=== PATIENT | female | born 1935 | race Caucasian/White ===

== ENCOUNTER → 2016-10-06 | Outpatient (CLI) | payer OTHER ==
[~2016-10-06] MED LIST: GADOBUTROL 10 ML VIAL IVP ONE
[2016-10-06 12:20] LABS: CREATININE 0.7 mg/dL (0.6-1.0); GLOMERULAR FILTRATION RATE > 60
== END ==
LOC: FIMAGING 11:27
PROVIDERS: ATTEND Internal Medicine Gastroenterology
DX: K86.2 Cyst of pancreas (principal); Z90.49 Acquired absence of other specified parts of digestive tract; R93.2 Abnormal findings on diagnostic imaging of liver and biliary tract
CPT/HCPCS: 74183; A9585

== ENCOUNTER → 2016-10-25 | Day surgery (SDC) | payer OTHER ==
[~2016-10-25] MED LIST changes: +DEXAMETHASONE 4 MG/ML VIAL ONE; +DICYCLOMINE 20 MG TAB PO ONE; -GADOBUTROL 10 ML VIAL IVP ONE; +GLUCAGON,HUMAN RECOMBINANT 1 MG VIAL ONE; +INDOMETHACIN 50 MG SUPP PR ONE; +IOTHALAMATE MEG (CONRAY) 50 ML VIAL IV ONE; +LIDOCAINE 1% 5 ML SDV ID PRN; +LIDOCAINE 2% 5 ML SDV ONE; +LR 1,000 ML IV ONE; +ONDANSETRON 4 MG/2 ML VIAL ONE; +PROPOFOL 200 MG/20 ML VIAL ONE; +ROCURONIUM 50 MG/5 ML VIAL ONE; +SUGAMMADEX SODIUM 200 MG/2 ML VIAL IVP ONE; +fentaNYL 100 MCG/2 ML INJ ONE
--- NOTE | 2016-10-25 12:31 | GPN ---
[f rep st] PROCEDURE NOTE PREPROCEDURE DIAGNOSIS: Choledocholithiasis. POSTPROCEDURE DIAGNOSIS: Choledocholithiasis, status post stone removal. PROCEDURE: Endoscopic retrograde cholangiopancreatography with stone removal. MEDICATIONS: General anesthesia. Indomethacin 100 mg given rectally during the procedure. INDICATION: The patient is an 81-year-old female with a history of choledocholithiasis, with an ERCP last year with stone removal. She had a followup MRCP for pancreatic cyst and was found incidentally to have choledocholithiasis with the largest stone measuring 3 mm. She has been having some intermittent epigastric discomfort and mild chest discomfort, which may be secondary to these stones. She has consented for ERCP for stone removal. The risks and benefits of the procedure were discussed with the patient. Consent obtained. Risks include, but are not limited to, bleeding, perforation, infection, risks related to pancreatitis. DESCRIPTION OF PROCEDURE: The duodenoscope inserted into the esophagus, into stomach, and second portion of the duodenum. The ampulla was visualized. The hydratome catheter was used to engage the ampulla, and the preloaded Jagwire advanced into the intrahepatic biliary tree to secure position. The pancreatic duct was never injected or cannulated. Next, a balloon was inserted into the bile duct over the wire. The 9-12 mm stone extraction balloon was inflated to 9 mm and then to 12 mm. Multiple balloon sweeps yielded stone debris and sludge. A 3 mm intact stone was also removed. A final occlusion cholangiogram was negative for retained stones. IMPRESSION: Choledocholithiasis, status post stone removal. A final cholangiogram was negative for retained stones. RECOMMENDATIONS: 1. Advance diet as tolerated. 2. Discharge to home with escort. 3. Follow up in our clinic as previously scheduled for surveillance of her pancreatic cyst. Thank you for allowing me to participate in the care of your patient. Please do not hesitate to call with questions. /[id number]/MODL MTDD
== END | disposition home or self-care (01) ==
LOC: FSGY 09:24
PROVIDERS: ATTEND Internal Medicine Gastroenterology
PROC: 0F798ZZ Dilation of Common Bile Duct, Via Natural or Artificial Opening Endoscopic (ICD-10-PCS; principal; 2016-10-25 11:00)
DX: K80.50 Calculus of bile duct without cholangitis or cholecystitis without obstruction (principal)
CPT/HCPCS: J1100; J1610; J2405; J2704; J3010; Q9961

== ENCOUNTER → 2016-11-14 | Outpatient (CLI) | payer OTHER | LOC: BHFA 10:15 | PROVIDERS: ATTEND Internal Medicine Cardiovascular Disease | DX: I49.3 Ventricular premature depolarization (principal); I35.1 Nonrheumatic aortic (valve) insufficiency; I10 Essential (primary) hypertension; E78.5 Hyperlipidemia, unspecified ==

== ENCOUNTER → 2017-11-16 | Outpatient (CLI) | payer OTHER | LOC: BHFA 10:45 | PROVIDERS: ATTEND Internal Medicine Cardiovascular Disease | DX: I49.3 Ventricular premature depolarization (principal); R01.1 Cardiac murmur, unspecified ==

== ENCOUNTER 2018-11-01 10:02 | Inpatient (IN) | payer OTHER ==
--- NOTE | 2018-11-01 10:30 | CPEKG ---
Test Reason : OPEN Blood Pressure : / mmHG Vent. Rate : 067 BPM Atrial Rate : 068 BPM P-R Int : 205 ms QRS Dur : 096 ms QT Int : 394 ms P-R-T Axes : 083 051 087 degrees QTc Int : 416 ms Sinus rhythm Borderline abnrm T, anterolateral leads Confirmed by Eliceo Russell ([id number] on 11/01/2018 10:29:09 AM Referred By: PHYSICIAN ED Confirmed By:Eliceo Russell
--- NOTE | 2018-11-01 10:43 | EDPHY ---
H & P Stated Complaint: cp/ bile duct pain Time Seen by Provider: 11/01/18 10:29 HPI/ROS: CHIEF COMPLAINT: Epigastric pain HISTORY OF PRESENT ILLNESS: The patient is an 83-year-old female has a history of cholecystectomy the and pancreatic stones. She states that she has had 2 pancreatic duct stones removed over the last several years. She states that this morning she developed epigastric pain similar to previous stone episodes. She called her son who brought her to the ER however her symptoms have resolved by the time she arrived. She denies having any cardiac history. She has follow -up with gastrology Dr. Francois next week. She did feel nauseous but did not vomit. No diarrhea. No fever. No shortness of breath. Severity: Moderate Modifying factors: Worsened after eating, now resolved REVIEW OF SYSTEMS: Constitutional: denies: chills, fever, recent illness, recent injury EENTM: denies: blurred vision, double vision, nose congestion Respiratory: denies: cough, shortness of breath Cardiac: denies: chest pain, irregular heart rate, lightheadedness, palpitations Gastrointestinal/Abdominal: See HPI Genitourinary: denies: dysuria, frequency, hematuria, pain Musculoskeletal: denies: joint pain, muscle pain Skin: denies: lesions, rash, jaundice, bruising Neurological: denies: headache, numbness, paresthesia, tingling, dizziness, weakness Hematologic/Lymphatic: denies: blood clots, easy bleeding, easy bruising Immunologic/allergic: denies: HIV/AIDS, transplant 10 systems reviewed and negative except as noted EXAM: GENERAL: Well-appearing, well-nourished and in no acute distress. HEAD: Atraumatic, normocephalic. EYES: Pupils equal round and reactive to light, extraocular movements intact, sclera anicteric, conjunctiva are normal. ENT: TMs normal, nares patent, oropharynx clear without exudates. Moist mucous membranes. NECK: Normal range of motion, supple without lymphadenopathy or JVD. LUNGS: Breath sounds clear to auscultation bilaterally and equal. No wheezes rales or rhonchi. HEART: Regular rate and rhythm without murmurs, rubs or gallops. ABDOMEN: Soft, nontender, normoactive bowel sounds. No guarding, no rebound. No masses appreciated. BACK: No CVA tenderness, no spinal tenderness, step-offs or deformities EXTREMITIES: Normal range of motion, no pitting or edema. No clubbing or cyanosis. NEUROLOGICAL: Cranial nerves II through XII grossly intact. Normal speech, normal gait. 5/5 strength, normal movement in all extremities, normal sensation , normal reflexes PSYCH: Normal mood, normal affect. SKIN: Warm, dry, normal turgor, no visible rashes or lesions. Source: Patient Exam Limitations: No limitations - Personal History Current Tetanus Diphtheria and Acellular Pertussis (TDAP): Yes - Medical/Surgical History Hx Asthma: No Hx Chronic Respiratory Disease: No Hx Diabetes: No Hx Cardiac Disease: Yes Hx Renal Disease: No Hx Cirrhosis: No Hx Alcoholism: No Hx HIV/AIDS: No Hx Splenectomy or Spleen Trauma: No Other PMH: Pancreatic stones, cholecystectomy, macular degeneration, corneal erosion, high cholesterol, diverticulitis, diverticulosis, HTN, GERD, urge incontinence, right eye retinal tear, hysterectomy, Csection x 1, bladder/ rectal repair, cardiac cath, bladdersuspension, rectocele repair, right knee surgery, bilateral cataract removals - Family History Significant Family History: No pertinent family hx - Social History Smoking Status: Never smoked Alcohol Use: Sober Constitutional: Initial Vital Signs Temperature (C) 36.7 C 11/01/18 10:14 Heart Rate 71 11/01/18 10:14 Respiratory Rate 16 11/01/18 10:14 Blood Pressure 177/87 H 11/01/18 10:14 O2 Sat (%) 98 11/01/18 10:14 O2 Delivery Mode Room Air Allergies/Adverse Reactions: Gixrcus-Bsj-Cit Reductase Inhibitor Allergy (Severe, Verified 12/19/11 10:10) Other-Enter Comments diazepam [From Valium] Allergy (Intermediate, Verified 12/19/11 10:10) Other-Enter Comments hydrocodone bitartrate [From Vicodin] Allergy (Intermediate, Verified 12/19/11 10:10) Other-Enter Comments adhesive [Adhesive] Allergy (Mild, Verified 12/19/11 10:10) Rash dexlansoprazole [From Dexilant] Allergy (Unknown, Verified 12/19/11 10:10) nitrofurantoin [From Furadantin] Allergy (Unknown, Verified 12/19/11 10:10) sulfamethoxazole [From Bactrim] Allergy (Unknown, Verified 12/19/11 10:10) trimethoprim [From Bactrim] Allergy (Unknown, Verified 12/19/11 10:10) colesevelam HCl [From WelChol] Allergy (Verified 05/05/15 16:30) ezetimibe [From Zetia] Allergy (Verified 05/05/15 16:30) gabapentin Allergy (Verified 10/21/16 15:10) lisinopril Allergy (Verified 05/05/15 16:30) nebivolol HCl [From Bystolic] Allergy (Verified 05/05/15 16:30) Home Medications: Medication Instructions Recorded Aspirin [Aspirin 81mg (*)] 81 mg PO DAILY 12/19/11 Polyethylene Glycol 3350 [Miralax 17 gm PO DAILY PRN 12/19/11 17 gm (*)] Herbals/Supplements -Info Only 1 ea PO DAILY 09/15/15 C/E/Zn/Cu/OM3/DHA/EPA/LUT/ZEAX 1 each PO BID 10/21/16 [Preservision Areds 2 Softgel] Cholecalciferol Vit D3 [Vitamin D3 1,000 units PO DAILY 10/21/16 (*)] Metoprolol Succinate Xr [Toprol Xl 12.5 mg PO HS 10/21/16 25 mg (*)] Propylene Glycol/Peg 400/Pf 1 each OP Q6HRS 10/21/16 [Systane 0.3-0.4% Eye Drops] Vitamin B Complex [Vitamin B 1 each PO DAILY 10/21/16 Complex (OTC)] Calcium Carbonate [Tums 500MG (*)] 500 mg PO DAILY PRN 11/01/18 Omeprazole 20 mg PO HS 11/01/18 Psyllium Husk (with Sugar) 1 each PO DAILY PRN 11/01/18 [Metamucil Packet] Medical Decision Making - Diagnostics EKG Interpretation: An EKG obtained and was read and documented in trace view. Please see trace view for full reading and report. Sinus rhythm, nonspecific T-wave abnormalities similar to previous Imaging Results: Imaging Impressions Abdomen CT 11/01/18 00:00 Impression: 1. Biliary dilatation, with probable choledocholithiasis, which suggests recurrent or persistent choledocholithiasis, with interval ERCP and stone removal since prior demonstration of choledocholithiasis. 2. Extensive diverticulosis, without evidence of diverticulitis. 3. Moderate stool in the colon. 4. Additional findings, as above.. Findings discussed with Eliceo Russell M.D., on November 01, 2018 at 1140. E:amm Abdomen MRI 11/01/18 12:15 Impression: Filling defect, elongated and linear, adherent to the posterior wall of the distal common duct. Differential includes stone versus mass. Findings are reviewed with Dr. Muller. Imaging: Discussed imaging studies w/ group cio Radiologist ED Course/Re-evaluation: Patient tells me that her symptoms have resolved and that she thinks she has another stone and that maybe it has passed a would like to go home. Her son however requested that we do a workup because she has follow-up with GI next week and he would like to have the testing done before they see GI. 11:30 p.m.. We discussed the CT and lab results. The patient remains in symptomatic and would prefer to go home. She states she is currently asymptomatic. I have paged GI service 12:05 p.m. I discussed the case with Dr. Muller who is on-call for GI. We reviewed the lab work and the patient's symptoms. The patient is currently pain -free and would like to go home. He is agreeable with this and states that their office will call her for follow-up. She has appointment on the with Dr. Francois but may need to be seen sooner. She likely has a pancreatic duct stone with slightly elevated LFTs, normal lipase. 12:[address] Muller has called back and is requesting a before she go home she get an MRCP. 2:00 p.m. the patient does have a common bile duct stone seen on MRCP. Dr. Muller has been here and evaluated her. He will take her to ERCP this evening and requests admission to the hospital service. Differential Diagnosis: Partial list of the Differential diagnosis considered include but were not limited to; pancreatic duct stone, pancreatitis, hepatitis, acute coronary disease and although unlikely based on the history and physical exam, I also considered peptic ulcer disease. I discussed these differential diagnoses and the plan with the [patient] as well as the usual and expected course. The [ patient understands] that the diagnosis is provisional and that in medicine we are not always correct and that further workup is often warranted. Usual and customary warnings were given. All of the [patient's] questions were answered. The [patient was] instructed to return to the emergency department should the symptoms at all worsen or return, otherwise to followup with the physician as we discussed. - Data Points Laboratory Results: Laboratory Results 11/01/18 10:00 11/01/18 10:00 11/01/18 11/01/18 11/01/18 10:22 10:00 10:00 WBC 5.42 10^3/uL 10^3/uL (3.80-9.50) RBC 4.72 10^6/uL 10^6/uL (4.18-5.33) Hgb 14.4 g/dL g/dL (12.6-16.3) Hct 41.8 % % (38.0-47.0) MCV 88.6 fL fL (81.5-99.8) MCH 30.5 pg pg (27.9-34.1) MCHC 34.4 g/dL g/dL (32.4-36.7) RDW 12.8 % % (11.5-15.2) Plt Count 226 10^3/uL 10^3/uL (150-400) MPV 9.0 fL fL (8.7-11.7) Neut % (Auto) 49.1 % % (39.3-74.2) Lymph % (Auto) 41.1 % % (15.0-45.0) Warrick % (Auto) 8.1 % % (4.5-13.0) Eos % (Auto) 0.9 % % (0.6-7.6) Baso % (Auto) 0.6 % % (0.3-1.7) Nucleat RBC Rel Count 0.0 % % (0.0-0.2) Absolute Neuts (auto) 2.66 10^3/uL 10^3/uL (1.70-6.50) Absolute Lymphs (auto) 2.23 10^3/uL 10^3/uL (1.00-3.00) Absolute Monos (auto) 0.44 10^3/uL 10^3/uL (0.30-0.80) Absolute Eos (auto) 0.05 10^3/uL 10^3/uL (0.03-0.40) Absolute Basos (auto) 0.03 10^3/uL 10^3/uL (0.02-0.10) Absolute Nucleated RBC 0.00 10^3/uL 10^3/uL (0-0.01) Immature Gran % 0.2 % % (0.0-1.1) Immature Gran # 0.01 10^3/uL 10^3/uL (0.00-0.10) Sodium 134 mEq/L L mEq/L (135-145) Potassium 4.0 mEq/L mEq/L (3.5-5.2) Chloride 99 mEq/L mEq/L (97-110) Carbon Dioxide 26 mEq/l mEq/l (22-31) Anion Gap 9 mEq/L mEq/L (6-14) BUN 16 mg/dL mg/dL (7-23) Creatinine 0.6 mg/dL mg/dL (0.6-1.0) Estimated GFR > 60 Glucose 128 mg/dL H mg/dL (70-100) Calcium 10.1 mg/dL mg/dL (8.5-10.4) Total Bilirubin 0.5 mg/dL mg/dL (0.1-1.4) Conjugated Bilirubin 0.2 mg/dL mg/dL (0.0-0.5) Unconjugated Bilirubin 0.3 mg/dL mg/dL (0.0-1.1) AST 161 IU/L H IU/L (14-46) ALT 130 IU/L H IU/L (9-52) Alkaline Phosphatase 139 IU/L H IU/L (38-126) POC Troponin I 0.00 ng/mL ng/mL (0.00-0.08) Total Protein 8.0 g/dL g/dL (6.3-8.2) Albumin 4.5 g/dL g/dL (3.5-5.0) Lipase 139 IU/L IU/L (23-300) Point of Care Test Results: Chemistry 11/01/18 10:22 POC Troponin I 0.00 ng/mL ng/mL (0.00-0.08) Departure - Departure Disposition: [facility] Inpatient Acute Clinical Impression: Epigastric abdominal pain, Common bile duct stone Condition: Fair
[2018-11-01 10:44] LABS: PLATELET COUNT 226 10^3/uL (150-400)
[2018-11-01] MEDS ORDERED: IOPAMIDOL (ISOVUE-300) 100 ML BTL ONE ×2 (10:52→11:09)
[2018-11-01] MEDS ORDERED: IOTHALAMATE MEG (CONRAY) 50 ML VIAL IV ONE (14:29)
--- NOTE | 2018-11-01 14:32 | PDGENHP ---
History and Physical - Chief Complaint abd pain - History of Present Illness The patient is an 83-year-old female has a history of cholecystectomy the and pancreatic stones. She states that she has had 2 pancreatic duct stones removed over the last several years. She states that this morning she developed epigastric pain similar to previous stone episodes. No diarrhea. No fever. No shortness of breath. No chest pain Modifying factors: Worsened after eating, now resolved In the ER she is found to have choledocholithiasis. GI has been consulted. PMH: Pancreatic stones, cholecystectomy, macular degeneration, corneal erosion, high cholesterol, diverticulitis, diverticulosis, HTN, GERD, urge incontinence, right eye retinal tear, hysterectomy, Csection x 1, bladder/rectal repair, cardiac cath, bladder suspension, rectocele repair, right knee surgery, bilateral cataract removals - Family History No pertinent family hx - Social History Smoking Status: Never smoked History Information - Allergies/Home Medication List Allergies/Adverse Reactions: Aylpjtm-Eqy-Roa Reductase Inhibitor Allergy (Severe, Verified 12/19/11 10:10) Other-Enter Comments diazepam [From Valium] Allergy (Intermediate, Verified 12/19/11 10:10) Other-Enter Comments hydrocodone bitartrate [From Vicodin] Allergy (Intermediate, Verified 12/19/11 10:10) Other-Enter Comments adhesive [Adhesive] Allergy (Mild, Verified 12/19/11 10:10) Rash dexlansoprazole [From Dexilant] Allergy (Unknown, Verified 12/19/11 10:10) nitrofurantoin [From Furadantin] Allergy (Unknown, Verified 12/19/11 10:10) sulfamethoxazole [From Bactrim] Allergy (Unknown, Verified 12/19/11 10:10) trimethoprim [From Bactrim] Allergy (Unknown, Verified 12/19/11 10:10) colesevelam HCl [From WelChol] Allergy (Verified 05/05/15 16:30) ezetimibe [From Zetia] Allergy (Verified 05/05/15 16:30) gabapentin Allergy (Verified 10/21/16 15:10) lisinopril Allergy (Verified 05/05/15 16:30) nebivolol HCl [From Bystolic] Allergy (Verified 05/05/15 16:30) Home Medications: Aspirin [Aspirin 81mg (*)] 81 mg PO DAILY 12/19/11 [Last Taken 11/01/18] Polyethylene Glycol 3350 [Miralax 17 gm (*)] 17 gm PO DAILY PRN 12/19/11 [Last Taken 10/24/16 07:30] Herbals/Supplements -Info Only 1 ea PO DAILY 09/15/15 [Last Taken 10/21/16] C/E/Zn/Cu/OM3/DHA/EPA/LUT/ZEAX [Preservision Areds 2 Softgel] 1 each PO BID [Last Taken 11/01/18] Cholecalciferol Vit D3 [Vitamin D3 (*)] 1,000 units PO DAILY 10/21/16 [Last Taken 11/01/18] Metoprolol Succinate Xr [Toprol Xl 25 mg (*)] 12.5 mg PO HS 10/21/16 [Last Taken 10/31/18] Propylene Glycol/Peg 400/Pf [Systane 0.3-0.4% Eye Drops] 1 each OP Q6HRS [Last Taken 11/01/18] Vitamin B Complex [Vitamin B Complex (OTC)] 1 each PO DAILY 10/21/16 [Last Taken 11/01/18] Calcium Carbonate [Tums 500MG (*)] 500 mg PO DAILY PRN 11/01/18 [Last Taken Unknown] Omeprazole 20 mg PO HS 11/01/18 [Last Taken 10/31/18] Psyllium Husk (with Sugar) [Metamucil Packet] 1 each PO DAILY PRN 11/01/18 [ Last Taken Unknown] I have personally reviewed and updated: medical history, social history - Social History Smoking Status: Never smoked Alcohol Use: Sober Review of Systems Review of Systems: ROS: 10pt was reviewed & negative except for what was stated in HPI & below Physical Exam Physical Exam: Temp Pulse Resp BP Pulse Ox 36.7 C 71 16 177/87 H 98 11/01/18 10:14 11/01/18 10:14 11/01/18 10:14 11/01/18 10:14 11/01/18 10:14 Constitutional: no apparent distress, No not in pain Eyes: PERRL, EOMI Ears, Nose, Mouth, Throat: moist mucous membranes, hearing normal Cardiovascular: regular rate and rhythym Respiratory: no respiratory distress, no rales or rhonchi, clear to auscultation Gastrointestinal: No distension Skin: warm Neurologic: AAOx3 Psychiatric: interacting appropriately, not anxious, not encephalopathic Lymph, Heme, Immunologic: No petechiae Lab Data & Imaging Review 11/01/18 10:00 11/01/18 10:00 WBC 5.42 10^3/uL (3.80-9.50) 11/01/18 10:00 RBC 4.72 10^6/uL (4.18-5.33) 11/01/18 10:00 Hgb 14.4 g/dL (12.6-16.3) 11/01/18 10:00 Hct 41.8 % (38.0-47.0) 11/01/18 10:00 MCV 88.6 fL (81.5-99.8) 11/01/18 10:00 MCH 30.5 pg (27.9-34.1) 11/01/18 10:00 MCHC 34.4 g/dL (32.4-36.7) 11/01/18 10:00 RDW 12.8 % (11.5-15.2) 11/01/18 10:00 Plt Count 226 10^3/uL (150-400) 11/01/18 10:00 MPV 9.0 fL (8.7-11.7) 11/01/18 10:00 Neut % (Auto) 49.1 % (39.3-74.2) 11/01/18 10:00 Lymph % (Auto) 41.1 % (15.0-45.0) 11/01/18 10:00 Crockett % (Auto) 8.1 % (4.5-13.0) 11/01/18 10:00 Eos % (Auto) 0.9 % (0.6-7.6) 11/01/18 10:00 Baso % (Auto) 0.6 % (0.3-1.7) 11/01/18 10:00 Nucleat RBC Rel Count 0.0 % (0.0-0.2) 11/01/18 10:00 Absolute Neuts (auto) 2.66 10^3/uL (1.70-6.50) 11/01/18 10:00 Absolute Lymphs (auto) 2.23 10^3/uL (1.00-3.00) 11/01/18 10:00 Absolute Monos (auto) 0.44 10^3/uL (0.30-0.80) 11/01/18 10:00 Absolute Eos (auto) 0.05 10^3/uL (0.03-0.40) 11/01/18 10:00 Absolute Basos (auto) 0.03 10^3/uL (0.02-0.10) 11/01/18 10:00 Absolute Nucleated RBC 0.00 10^3/uL (0-0.01) 11/01/18 10:00 Immature Gran % 0.2 % (0.0-1.1) 11/01/18 10:00 Immature Gran # 0.01 10^3/uL (0.00-0.10) 11/01/18 10:00 Sodium 134 mEq/L (135-145) L 11/01/18 10:00 Potassium 4.0 mEq/L (3.5-5.2) 11/01/18 10:00 Chloride 99 mEq/L (97-110) 11/01/18 10:00 Carbon Dioxide 26 mEq/l (22-31) 11/01/18 10:00 Anion Gap 9 mEq/L (6-14) 11/01/18 10:00 BUN 16 mg/dL (7-23) 11/01/18 10:00 Creatinine 0.6 mg/dL (0.6-1.0) 11/01/18 10:00 Estimated GFR > 60 11/01/18 10:00 Glucose 128 mg/dL (70-100) H 11/01/18 10:00 Calcium 10.1 mg/dL (8.5-10.4) 11/01/18 10:00 Total Bilirubin 0.5 mg/dL (0.1-1.4) 11/01/18 10:00 Conjugated Bilirubin 0.2 mg/dL (0.0-0.5) 11/01/18 10:00 Unconjugated Bilirubin 0.3 mg/dL (0.0-1.1) 11/01/18 10:00 AST 161 IU/L (14-46) H 11/01/18 10:00 ALT 130 IU/L (9-52) H 11/01/18 10:00 Alkaline Phosphatase 139 IU/L (38-126) H 11/01/18 10:00 POC Troponin I 0.00 ng/mL (0.00-0.08) 11/01/18 10:22 Total Protein 8.0 g/dL (6.3-8.2) 11/01/18 10:00 Albumin 4.5 g/dL (3.5-5.0) 11/01/18 10:00 Lipase 139 IU/L (23-300) 11/01/18 10:00 Assessment & Plan Assessment: Common bile duct stone, choledocholithiasis -s/p ERCP with Sphincterotomy with Balloon dilation by Dr. Muller today Epigastric abdominal pain Transaminitis HTN Hx of Diverticulosis Plan: [facility] GI to perform stenting Symptom mgmt BP control appropriate home meds SCD's
[2018-11-01] MEDS ORDERED: ONDANSETRON DISINTEGRATING 4 MG TAB PO PRN (14:34)
[2018-11-01] MEDS ORDERED: ACETAMINOPHEN 325 MG TAB PO PRN (14:34)
[2018-11-01] MEDS ORDERED: CALCIUM CARBONATE 500 MG CHEWABLE TAB PO PRN (14:37)
[2018-11-01] MEDS ORDERED: PSYLLIUM METAMUCIL 1 PKT PO PRN (14:37)
[2018-11-01] MEDS ORDERED: POLYETHYLENE GLYCOL 3350 17 GM PKT PO PRN (14:37)
--- NOTE | 2018-11-01 15:08 | PDANEPAE ---
ANE History of Present Illness common bile duct stones ANE Past Medical History - Cardiovascular History Hx Hypertension: Yes Hx Arrhythmias: No Hx Chest Pain: No Hx Coronary Artery / Peripheral Vascular Disease: No Hx CHF / Valvular Disease: No Hx Palpitations: No Cardiovascular History Comment: CP MAY 2015 - WORKED UP - FOUND TO BE GI RELATED - Pulmonary History Hx COPD: No Hx Asthma/Reactive Airway Disease: No Hx Recent Upper Respiratory Infection: No Hx Oxygen in Use at Home: No Hx Sleep Apnea: No - Neurologic History Hx Cerebrovascular Accident: No Hx Seizures: No Hx Dementia: No - Endocrine History Hx Diabetes: No Hypothyroid: No Hyperthyroid: No Obesity: no - Renal History Hx Renal Disorders: No Renal History Comment: BLADDER REPAIRS. URGENCY INCONT - Liver History Hx Hepatic Disorders: Yes Hepatic History Comment: NOW HAS STONE IN BILE DUCT 08/2015. CHOLECYSTECTOMY - Neurological & Psychiatric Hx Hx Neurological and Psychiatric Disorders: No - Cancer History Hx Cancer: No - Congenital Disorder History Hx Congenital Disorders: No - GI History Hx Gastrointestinal Disorders: Yes Gastrointestinal History Comment: GERD. ESOPHAGEAL STRICTURE. DIVERTICULITIS. POLYPS - Other Health History Other Health History: NEG - Chronic Pain History Chronic Pain: Yes (LUMBAR SPINE) - Surgical History Prior Surgeries: EGD/EUS 08/18/15. BLADDER REPAIR. BUNIONECTOMY. T&A. LUMP REM R KNEE. C SECTION. HYSTERECTOMY. CARDIAC CATH YEARS AGO. RETINAL TEAR REPAIR R. GANGLION REM R FOOT. BUNIONECTOMY R FOOT. CHOLECYSTECTOMY. RECTOCELE, CYSTOCELE. ARTHROSCOPIC KNEE R ANE Review of Systems Review of systems is: negative Review of Systems: ANE Patient History - Allergies Allergies/Adverse Reactions: Kcasjqw-Kbm-Beb Reductase Inhibitor Allergy (Severe, Verified 12/19/11 10:10) Other-Enter Comments diazepam [From Valium] Allergy (Intermediate, Verified 12/19/11 10:10) Other-Enter Comments hydrocodone bitartrate [From Vicodin] Allergy (Intermediate, Verified 12/19/11 10:10) Other-Enter Comments adhesive [Adhesive] Allergy (Mild, Verified 12/19/11 10:10) Rash dexlansoprazole [From Dexilant] Allergy (Unknown, Verified 12/19/11 10:10) nitrofurantoin [From Furadantin] Allergy (Unknown, Verified 12/19/11 10:10) sulfamethoxazole [From Bactrim] Allergy (Unknown, Verified 12/19/11 10:10) trimethoprim [From Bactrim] Allergy (Unknown, Verified 12/19/11 10:10) colesevelam HCl [From WelChol] Allergy (Verified 05/05/15 16:30) ezetimibe [From Zetia] Allergy (Verified 05/05/15 16:30) gabapentin Allergy (Verified 10/21/16 15:10) lisinopril Allergy (Verified 05/05/15 16:30) nebivolol HCl [From Bystolic] Allergy (Verified 05/05/15 16:30) - Home Medications Home medications: home medication list seen and reviewed Home Medications: Aspirin [Aspirin 81mg (*)] 81 mg PO DAILY 12/19/11 [Last Taken 11/01/18] Polyethylene Glycol 3350 [Miralax 17 gm (*)] 17 gm PO DAILY PRN 12/19/11 [Last Taken 10/24/16 07:30] Herbals/Supplements -Info Only 1 ea PO DAILY 09/15/15 [Last Taken 10/21/16] C/E/Zn/Cu/OM3/DHA/EPA/LUT/ZEAX [Preservision Areds 2 Softgel] 1 each PO BID [Last Taken 11/01/18] Cholecalciferol Vit D3 [Vitamin D3 (*)] 1,000 units PO DAILY 10/21/16 [Last Taken 11/01/18] Metoprolol Succinate Xr [Toprol Xl 25 mg (*)] 12.5 mg PO HS 10/21/16 [Last Taken 10/31/18] Propylene Glycol/Peg 400/Pf [Systane 0.3-0.4% Eye Drops] 1 each OP Q6HRS [Last Taken 11/01/18] Vitamin B Complex [Vitamin B Complex (OTC)] 1 each PO DAILY 10/21/16 [Last Taken 11/01/18] Calcium Carbonate [Tums 500MG (*)] 500 mg PO DAILY PRN 11/01/18 [Last Taken Unknown] Omeprazole 20 mg PO HS 11/01/18 [Last Taken 10/31/18] Psyllium Husk (with Sugar) [Metamucil Packet] 1 each PO DAILY PRN 11/01/18 [ Last Taken Unknown] - NPO status NPO Since - Liquids (Date): 11/01/18 NPO Since - Liquids (Time): 08:00 NPO Since - Solids (Date): 11/01/18 NPO Since - Solids (Time): 08:00 - Smoking Hx Smoking Status: Never smoked - Alcohol Use Alcohol Use: Sober - Family Anes Hx Family Hx Anesthesia Complications: NEG ANE Labs/Vital Signs - Labs Result Diagrams: 11/01/18 10:00 11/01/18 10:00 - Vital Signs Blood Pressure: 155/101 Heart Rate: 72 Respiratory Rate: 18 O2 Sat (%): 99 Height: 154.94 cm Weight: 58.967 kg ANE Physical Exam - Airway Neck exam: FROM Mallampati Score: Class 2 Mouth exam: normal dental/mouth exam - Pulmonary Pulmonary: no respiratory distress, clear to auscultation - Cardiovascular Cardiovascular: regular rate and rhythym, no murmur, rub, or gallop - ASA Status ASA Status: II ANE Anesthesia Plan Anesthesia Plan: general endotracheal anesthesia
[2018-11-01] MEDS ORDERED: SUCCINYLCHOLINE CHLORIDE 200 MG/10 ML SYR IVP ONE (15:11)
[2018-11-01] MEDS ORDERED: PROPOFOL 200 MG/20 ML VIAL ONE (15:11)
[2018-11-01] MEDS ORDERED: ROCURONIUM 50 MG/5 ML VIAL ONE (15:11)
[2018-11-01] MEDS ORDERED: LIDOCAINE 2% 2 ML INJ ONE (15:12)
[2018-11-01] MEDS ORDERED: NALOXONE HCL 0.4 MG/ML INJ IVP PRN (15:32)
--- NOTE | 2018-11-01 15:34 | POSTANESTH ---
Post Anesthetic Evaluation Cardiovascular Status: Normal, Stable Respiratory Status: Normal, Stable Level of Consciousness/Mental Status: Can Participate in Eval Pain Control: Adequate, Prn Tx Ordered Nausea/Vomiting Control: Adequate, Prn Tx Ordered Complications Possibly Related to Anesthesia: None Noted
[2018-11-01] MEDS ORDERED: ONDANSETRON 4 MG/2 ML VIAL ONE ×2 (15:36→16:05)
[2018-11-01] MEDS ORDERED: METOPROLOL TARTRATE 5 MG/5 ML INJ ONE (15:36)
--- NOTE | 2018-11-01 15:52 | GIREPORT ---
[facility] Surgical Services - Endoscopy Department Patient Name: Jo-Ann Nicolas Procedure Date: 11/01/2018 2:30 PM Patient Type: Emergency Department Attending MD/ ER Physician: Sterling Muller MD Procedure: ERCP Indications: Bile duct stone(s), Abdominal pain of suspected biliary origin, Elevate d liver enzymes, Patient with prior Cholecystectomy. Presented with prima ry CBD stones in 2015. Had ERCP and sphincterotomy at that time. Providers: Sterling Muller MD Medicines: General Anesthesia Complications: No immediate complications. Description of Procedure: After obtaining informed consent, the scope was passed under direct vis ion. Throughout the procedure, the patient's blood pressure, pulse, and oxyg en saturations were monitored continuously. The Duodenoscope was introduce d through the mouth, and advanced to the duodenum and used to inject cont rast into the bile duct. The ERCP was accomplished without difficulty. The patient tolerated the procedure well. Findings: The esophagus was successfully intubated under direct vision. The scope was advanced to a normal major papilla in the descending duodenum without detailed examination of the pharynx, larynx and associated structures, and upper GI tract. The upper GI tract was grossly normal. The bile duct wa s deeply cannulated with the short-nosed traction sphincterotome and glidewire. Contrast was injected. I personally interpreted the bile isma t images. Image quality was excellent. The common bile duct contained dane ling defect(s) thought to be a stone and sludge. Placement of a 0.035 inch straight Glidewire into the biliary tree was attempted. This passed successfully. , A biliary sphincterotomy had been performed. The sphincterotomy appeared open. A 4 mm biliary sphincterotomy was made wi th a traction (standard) sphincterotome using ERBE electrocautery. There was no post-sphincterotomy bleeding. The biliary tree was swept with a 15 mm balloon starting at the bifurcation. Sludge was swept from the duct. Al l stones were removed. Nothing was found after duct swept. Estimated Blood Loss: Estimated blood loss: none. Post Op Diagnosis: - Prior biliary sphincterotomy appeared open. - A filling defect consistent with a stone and sludge was seen on the cholangiogram. - Choledocholithiasis was found. Complete removal was accomplished by biliary sphincterotomy and balloon extraction. Recommendation: - Clear liquid diet. - Check liver enzymes (AST, ALT, alkaline phosphatase, bilirubin) in th e morning. - Thank you for allowing me to participate in the care of your patient. Attending Participation: I personally performed the entire procedure. Sterling Muller MD Sterling Muller MD 11/01/2018 3:51:34 PM This report has been signed electronicallyStsteve Muller MD Number of Addenda: 0 Note Initiated On: 11/01/2018 2:30 PM [email or web address]
[2018-11-01] MEDS: ONDANSETRON 4 MG/2 ML VIAL IVP PRN (16:08)
[2018-11-01] MEDS: PROPYLENE GLYCOL OP SCH (17:40)
[2018-11-01] MEDS: PEG OP SCH (17:40)
--- NOTE | 2018-11-01 18:46 | GCON ---
[f rep st] CONSULTATION DATE OF CONSULTATION: 11/01/2018 REFERRING PHYSICIAN: Eliceo Russell MD CHIEF COMPLAINT: Abnormal liver function tests. Abdominal pain. HISTORY OF PRESENT ILLNESS: I have been asked to see this very pleasant 83-year -old woman in consultation by Dr. Russell for evaluation of abnormal liver function tests and abdominal pain. This 83-year-old woman has a prior history of primary bile duct stones dating back to 2016. She has had a previous cholecystectomy. She presented at that time with epigastric pain, abnormal liver function tests. She had an ERCP with the finding of primary bile duct stones. She underwent ERCP with sphincterotomy. She was also found to have benign pancreatic cysts. The pancreatic cysts were stable on followup imaging. This patient has had several attacks over the last several days of epigastric pain with associated nausea and vomiting. Patient reports these are similar symptoms from her previous attacks of choledocholithiasis. She was noted to have abnormal liver function tests with elevated AST of 161 and ALT of 130. Alkaline phosphatase was elevated at 139. Bilirubin was normal at 0.5. She had CT scan imaging that suggested a common bile duct stone. MRCP also confirmed common bile duct stone and filling defect. I was asked to see patient for further evaluation. PAST MEDICAL HISTORY: Notable for DJD, chronic low back pain, hyperlipidemia, gastroesophageal reflux disease, Floyd palsy, cataract surgery, and diverticulosis. PAST SURGICAL HISTORY: Includes gallbladder repair, bunionectomy, , bilateral tubal ligation, cholecystectomy, variocele repair, ganglion cyst, hysterectomy, knee surgery, rectocele repair, tonsillectomy. SOCIAL HISTORY: Nonsmoker, nondrinker. FAMILY HISTORY: Negative as it pertains to chief complaint. MEDICATIONS: Metoprolol, Estrace, aspirin, Lovaza, Benefiber, Tums, hyoscyamine , Prevacid. ALLERGIES: Include statins, Valium, hydrocodone, adhesive tape, Dexilant, nitrofurantoin, Bactrim, Welchol, Zetia, lisinopril, and Bystolic. REVIEW OF SYSTEMS: Negative for 10 systems other than mentioned in HPI. PHYSICAL EXAM: VITAL SIGNS: Blood pressure 177/87, pulse 71, respiratory rate 16, sat 98%, temperature 36.7 degrees Celsius. General: Very pleasant woman in no acute distress. HEENT: Normocephalic, atraumatic. EOMI. No scleral icterus. NECK: Supple. No cervical adenopathy. No thyromegaly. Mucous membranes moist. LUNGS: Clear. CARDIAC: Normal S1, S2 without murmur. ABDOMEN: Soft, benign, nontender. No hepatosplenomegaly. EXTREMITIES: Without clubbing, cyanosis, or edema. NEURO: Nonfocal. SKIN: Warm, dry, intact. PSYCH: Alert and oriented x3 with normal affect. LABORATORY DATA: Serum sodium 134, potassium 4.0, chloride of 99, CO2 of 26, BUN of 16, blood sugar 128, AST of 161, ALT of 130, alkaline phosphatase of 139. CBC: Hemoglobin of 14.4, hematocrit of 41.8, white count of 5.42. IMPRESSION: 83-year-old woman with previous history of primary bile duct stones with recurrent attacks of biliary colic with abnormal liver function tests with obstructive pattern. She has had imaging, CT scan and MRI with filling defect of the common bile duct consistent with recurrent primary bile duct stones. RECOMMENDATIONS: Admit to the hospital. Proceed with ERCP, sphincterotomy, stone extraction. We will follow with you. /[id number]/MODL MTDD
[2018-11-01] MEDS: PANTOPRAZOLE SODIUM 40 MG TAB PO SCH (19:32)
[2018-11-01] MEDS: PRESERVISION AREDS2 FORMULA EYE VIT 1 EACH PO SCH (19:32)
[2018-11-01] MEDS: METOPROLOL SUCCINATE XR 25 MG TAB PO SCH (19:32)
[2018-11-01] MEDS ORDERED: hydrALAZINE 20 MG/ML VIAL IVP PRN (19:41)
[2018-11-02] MEDS ORDERED: oxyCODONE IR 5 MG TAB PO PRN (00:23)
[2018-11-02] MEDS: ONDANSETRON 4 MG/2 ML VIAL IVP PRN (00:43)
[2018-11-02] MEDS: PEG OP SCH ×5 (00:45→22:12)
[2018-11-02] MEDS: PROPYLENE GLYCOL OP SCH ×5 (00:45→22:12)
[2018-11-02 05:12] LABS: PLATELET COUNT 188 10^3/uL (150-400)
[2018-11-02] MEDS: CHOLECALCIFEROL VIT D3 1,000 UNITS TAB PO SCH (08:25)
[2018-11-02] MEDS: PRESERVISION AREDS2 FORMULA EYE VIT 1 EACH PO SCH ×2 (08:25→21:11)
[2018-11-02] MEDS: VITAMIN B COMPLEX 1 EA CAP/TAB PO SCH (08:25)
[2018-11-02] MEDS: PANTOPRAZOLE SODIUM 40 MG TAB PO SCH (08:25)
[2018-11-02] MEDS ORDERED: PANTOPRAZOLE SODIUM 40 MG TAB PO SCH (09:00)
--- NOTE | 2018-11-02 10:43 | HOSPPROG ---
Hospitalist Progress Note Assessment/Plan: 1. Common bile duct stone, choledocholithiasis -s/p ERCP with Sphincterotomy with Balloon dilation by Dr. Muller yesterday -discussed with HARVEY Langford to discharge per GI -as expected high LFTs today -discussed LFTs and sxs last nt with her/son -will monitor overnt, ensure able to tolerate diet without further pain, recheck LFTs in AM -likely discharge in AM 2. HTN- stable 3. Hx of Diverticulosis PCP [facility] DVT prophy- SCDs/ambulation DISPO- likely home in AM Subjective: Had chest/upper abd pain last nt, EKG/labs done. No further episodes today. Has advanced diet from clears to regular. No n/v/SOB. Is concerned re recurrent episode like last nt as was diff than anything shes had previously. Son in room. Objective: Vital Signs Temp Pulse Resp BP Pulse Ox 98.3 F 81 20 101/69 94 11/02/18 07:24 11/02/18 07:24 11/02/18 07:24 11/02/18 07:24 11/02/18 07:24 Laboratory Results 11/02/18 05:04 11/02/18 05:04 10/31/18 11/01/18 11/02/18 11:59 11:59 11:59 Intake Total 350 Output Total 0 Balance 350 - Time Spent With Patient Time Spent with Patient: greater than 35 minutes Time Spent with Patient: Greater than 35 minutes spent on this patients care, greater than 50% of time spent counseling, educating, and coordinating care regarding the above mentioned plan. - Physical Exam Constitutional: no apparent distress, appears nourished, not in pain Eyes: anicteric sclera Ears, Nose, Mouth, Throat: moist mucous membranes, hearing normal Cardiovascular: regular rate and rhythym Respiratory: no respiratory distress, no rales or rhonchi, clear to auscultation Gastrointestinal: normoactive bowel sounds, no palpable masses, other (mild TTP B UQs, but no rebound/guarding) Skin: warm Psychiatric: interacting appropriately, not anxious, not encephalopathic ICD10 Worksheet Patient Problems: Problems Problem Status Onset Common bile duct stone Acute Epigastric abdominal pain Acute Drug allergy Acute
--- NOTE | 2018-11-02 12:16 | ASMTCMCOM ---
CM Note CM Note Notes: CM discussed case w/ Dr. Cotto. Pt is a 83 y/o female admitted for pancreatic duct stone. CM met w/ pt and introduced self. Pt reports that she is pretty independent. Pt reports that she walks 2 miles daily. Pt reports that her has been in and out of the hospital/rehab. Pt does not think she needs HC at this time. Pt had a ERCP yesterday. Pt will d/c independent when medically stable. CM available for changes. Plan: Independent Date Signed: 11/02/2018 12:15 PM Electronically Signed By:MAMADOU Jasso
--- NOTE | 2018-11-02 15:15 | SOAPPROG ---
SOAP Progress Note Assessment/Plan: Assessment: Plan: 11/02/18 15:13 A/P 1. Choledocholithiasis- s/p ERCP. LFTs not decreasing. Suspect from inflammation from ERCP and stone extraction. If tolerates diet, ok to discharge home. Need LFTs next week. GI will sign off. Thank you for the consultation! Subjective: cc: No complaints Denies abdominal pain. Objective: Vital Signs Temp Pulse Resp BP Pulse Ox 36.5 C 70 16 116/80 97 11/02/18 11:45 11/02/18 11:45 11/02/18 11:45 11/02/18 11:45 11/02/18 11:45 Laboratory Results 11/02/18 05:04 11/02/18 05:04 11/01/18 11/02/18 11/03/18 05:59 05:59 05:59 Intake Total 350 Output Total 0 Balance 350 Physical Exam - Physical Exam General Appearance: alert, no apparent distress Respiratory: lungs clear, normal breath sounds, No decreased breath sounds Cardiac/Chest: regular rate, rhythm Abdomen: non-tender, soft, No distended, No guarding, No rebound Skin: normal color, warm/dry Extremities: normal range of motion, non-tender ICD10 Worksheet Patient Problems: Problems Problem Status Onset Drug allergy Acute Epigastric abdominal pain Acute Common bile duct stone Acute
[2018-11-02] MEDS: METOPROLOL SUCCINATE XR 25 MG TAB PO SCH (21:11)
[2018-11-03] MEDS: PROPYLENE GLYCOL OP SCH (04:39)
[2018-11-03] MEDS: PEG OP SCH (04:39)
[2018-11-03] MEDS: CHOLECALCIFEROL VIT D3 1,000 UNITS TAB PO SCH (07:43)
[2018-11-03] MEDS: PRESERVISION AREDS2 FORMULA EYE VIT 1 EACH PO SCH (07:43)
[2018-11-03] MEDS: PANTOPRAZOLE SODIUM 40 MG TAB PO SCH (07:43)
[2018-11-03] MEDS: VITAMIN B COMPLEX 1 EA CAP/TAB PO SCH (07:43)
[2018-11-03 08:21] VITALS: BP 115/89
--- NOTE | 2018-11-03 09:09 | PDMN ---
Medical Necessity Medical necessity: Change to IP, as of 11/02/18, per & MCG [id number]; los >2 mn s/ p ERCP w/sphincterotomy & balloon dilation for common bile duct stone; requiring further monitoring, follow-up labs & advancement of diet as tolerated
--- NOTE | 2018-11-03 09:22 | GDS ---
[f rep st] DISCHARGE SUMMARY DIAGNOSES: 1. Common bile duct stone, choledocholithiasis, status post ERCP with sphincterotomy and balloon dil ation. Elevated LFTs, improving today. 2. Hypertension. 3. History of diverticulosis. CONSULTATIONS: GI. PROCEDURES DONE: 1. Abdominal CT scan and abdominal MRI confirming filling defect adherent to the posterior wall of t he distal common bile duct. 2. ERCP filling defect consistent with stone or sludge were seen on the cholangiogram. Choledocholi thiasis was found. Complete removal was accomplished by biliary sphincterotomy and balloon extractio n. Prior biliary sphincterotomy appeared open. HOSPITAL COURSE: Ms. Nicolas is a very nice 83-year-old who presents with abdominal pain. Abdominal C T and MRI confirmed a filling defect in the common bile duct consistent with stone or sludge. GI was consulted and she underwent an ERCP on 11/01/2018. Postop LFTs did worsen initially, however, today they have improved significantly and she is essentially asymptomatic and eating a regular diet. She is ready for discharge home with close followup. Condition on discharge is good. Vital signs are s table. She is afebrile. Heart rate 81, blood pressure 115/89. She is 94% on room air. LFTs show a n AST of 87 down from 248 and an ALT of 172 down from 269. The rest of her electrolytes are normal. DISCHARGE MEDICATIONS: Please see discharge medication form. FOLLOWUP: She will follow up with her PCP this week and Dr. Francois as scheduled. She will get some LF Ts done in mid week to be sent to her primary care provider and Dr. Grant Francois. Total time spent with patient on day of discharge and coordination of care is 35 minutes. Copy requested to: Princess Tinoco NP [facility] /[id number]/MODL
--- NOTE | 2018-11-07 20:21 | CPEKG ---
Test Reason : OPEN Blood Pressure : / mmHG Vent. Rate : 061 BPM Atrial Rate : 061 BPM P-R Int : 231 ms QRS Dur : 087 ms QT Int : 589 ms P-R-T Axes : 082 035 093 degrees QTc Int : 594 ms Sinus rhythm Prolonged AR interval Borderline abnrm T, anterolateral leads Minimal ST elevation, lateral leads Prolonged QT interval Confirmed by Gilmer Booker ([id number]) on 11/07/2018 8:21:10 PM Referred By: Devon Camarillo Confirmed By:Gilmer Booker
== END 2018-11-03 09:59 | disposition home or self-care (01) | DRG 446 ==
LOC: EDUNIT# → F3E 17:12 → OBSVTOIN 11-02 18:27
PROVIDERS: ADMIT Family Medicine; ATTEND Family Medicine
PROC: 0FC98ZZ Extirpation of Matter from Common Bile Duct, Via Natural or Artificial Opening Endoscopic (ICD-10-PCS; principal; 2018-11-01 15:00)
DX: K80.50 Calculus of bile duct without cholangitis or cholecystitis without obstruction (principal); R74.0 Nonspecific elevation of levels of transaminase and lactic acid dehydrogenase [LDH]; I10 Essential (primary) hypertension; K21.9 Gastro-esophageal reflux disease without esophagitis
CPT/HCPCS: 84484-ER; G0378; J0330; J0360; J2270; J2405; J2704; Q9961; Q9967